=== PATIENT | female | born 1935 | race Caucasian/White ===

== ENCOUNTER 2016-11-30 14:16 | Emergency (ER) | payer MEDICARE ==
[2016-11-30 15:37] LABS: HEMOGLOBIN 11.9 gm/dl (12.3-15.3); RED BLOOD COUNT 4.07 M/UL (4.00-5.10); WHITE BLOOD COUNT 5.1 K/UL (4.5-11.0)
[2016-11-30 16:00] LABS: BUN/CREATININE RATIO 19 (0-10)
[2017-03-16] MEDS ORDERED: ANTIVERT 25MG T25 MG PO (22:41)
[2017-03-16] MEDS ORDERED: SYNTHROID50 MCG PO (22:46)
[2017-03-16] MEDS ORDERED: BUSPIRONE HCL7.5 MG PO (22:46)
[2017-03-16] MEDS ORDERED: FLONASE 0.05% N16 GM (22:46)
[2017-03-17] MEDS ORDERED: PROTONIX40 MG PO (14:20)
[2017-03-17] MEDS ORDERED: ASPIR-LOW81 MG PO (14:20)
[2017-04-18] MEDS ORDERED: CALCIUM500 MG PO (11:57)
[2017-04-18] MEDS ORDERED: VITAMIN D 11000 UNIT PO (11:58)
[2017-04-22] MEDS ORDERED: CELEXA20 MG PO (16:25)
[2017-04-22] MEDS ORDERED: LEVAQUIN250 MG PO (16:25)
[2017-04-22] MEDS ORDERED: FLAGYL500 MG PO (16:26)
[2017-04-22] MEDS ORDERED: THERAGRAN M TAB1 EA PO (16:27)
[2017-04-22] MEDS ORDERED: COLACE 100MG C100 MG PO (16:27)
== END 2016-11-30 17:50 | disposition home or self-care (01) ==
LOC: ER1 14:16
PROVIDERS: Emergency Medicine
DX: N39.0 Urinary tract infection, site not specified (principal)
CPT/HCPCS: 71010; 80053; 81001; 82550; 82553; 83605; 83874; 84484; 85025; 85610; 85730; 87086; 93005; 96360; 99283